=== PATIENT | male | born 1950 | race African-American/Black ===

== ENCOUNTER 2024-11-01 13:49 | Emergency (ER) | payer BC, MEDICAID ==
[~2024-11-01] VITALS: Ht 188 cm; Wt 93.0 kg
[2024-11-01 13:58] VITALS: O2SAT 97
[2024-11-01] MEDS: TETANUS, DIPHTHERIA, PERTUSSIS VAC/PF 0.5ML (>10YR OLD) IM ONE (15:21)
[2024-11-01] MEDS ORDERED: IBUP-2029 MT (16:13)
[2024-11-01 16:46] VITALS: BP 166/90; PULSE 86; RESP 16; TEMP 36.6; O2SAT 97
== END 2024-11-01 16:48 | disposition home or self-care (01) ==
LOC: ER 13:49
DX: T14.8XXA Other injury of unspecified body region, initial encounter (principal); I67.82 Cerebral ischemia; X58.XXXA Exposure to other specified factors, initial encounter; Y93.89 Activity, other specified; Y92.89 Other specified places as the place of occurrence of the external cause; Y99.8 Other external cause status
CPT/HCPCS: 70486; 90471; 90715; 99285